=== PATIENT | male | born 1990 | race Two or more races ===

== ENCOUNTER 2025-02-01 10:02 | Emergency (ER) | payer MEDICAID, OTHER ==
[~2025-02-01] VITALS: Ht 162.6 cm; Wt 51.9 kg
[2025-02-01 10:04] VITALS: BP 147/91; PULSE 80; RESP 15; TEMP 98; O2SAT 95
== END 2025-02-01 11:02 | disposition left against medical advice (07) ==
LOC: ER 10:02
DX: M25.511 Pain in right shoulder (principal); Z53.21 Procedure and treatment not carried out due to patient leaving prior to being seen by health care provider